=== PATIENT | male | born 2000 | race Hispanic/Latino ===

== ENCOUNTER 2022-03-29 17:12 | Emergency (ER) | payer OTHER, SELFPAY ==
[2022-03-29 17:19] VITALS: TEMP 37
--- NOTE | 2022-03-29 17:21 | DI.RAD.S_ITS ---
PROCEDURE: XR KNEE RT 3V INDICATIONS: pain without injury TECHNIQUE: 3 views of the knee were acquired. COMPARISON: None. FINDINGS: Bones: No fractures or dislocations. No suspicious bony lesions. The femorotibial joint spaces are relatively well preserved. There is [id number] lateral patellofemoral joint space narrowing seen. Soft tissues: No significant joint effusion. No suspicious soft tissue calcifications. IMPRESSION: Focal lateral patellofemoral joint space narrowing seen. If it would be helpful for clinical management decision making, please consider a dedicated, scheduled knee MRI for further evaluation (assuming that there is no contraindication). Dictated by: Cj Heath M.D. on 03/29/2022 at 16:48 Approved by: Cj Heath M.D. on 03/29/2022 at 16:48
[2022-03-29 17:22] VITALS: BP 124/74; PULSE 67; RESP 16; O2SAT 100
[2022-03-29 18:32] VITALS: BP 120/70; PULSE 65; RESP 18; TEMP 36.9; O2SAT 98
--- NOTE | 2022-03-29 19:41 | ED_ITS ---
HPI - Extremity Injury (Lower) <Seferino Catherine PA-C - Last Filed: 03/29/22 19:47> General Chief Complaint: Extremity Injury, Lower Stated Complaint: RO DVT Time Seen by Provider: 03/29/22 17:50 Source: patient Mode of arrival: Ambulatory History of Present Illness HPI Narrative: 21-year-old male with no reported past medical history presents to the ED with 2-1/2 weeks of right-sided knee pain. Patient states that he injured his right knee when working out on the treadmill, following which he experiences pain at the front of the knee when flexing and extending the knee, bearing weight. Patient denies numbness, tingling, weakness. Patient was [place] [employer] who sent him to the ED to rule out a DVT. Review of Systems <Seferino Catherine PA-C - Last Filed: 03/29/22 19:47> Review of Systems ROS Unobtainable: All systems reviewed & are unremarkable except as noted in HPI and below Constitutional Constitutional: Denies chills, Denies fatigue, Denies fever(s), Denies frequent falls, Denies lethargy and Denies weakness Eyes Eyes: Denies change in vision, Denies eye discharge, Denies irritation and Denies loss of vision ENT Ears, Nose, Mouth, and Throat: Denies change in voice, Denies dizziness, Denies neck pain, Denies sore throat and Denies throat swelling Cardiovascular Cardiovascular: Denies chest pain, Denies irregular heart rhythm, Denies lightheadedness, Denies palpitations, Denies dyspnea, Denies dyspnea on exertion and Denies orthopnea Respiratory Respiratory: Denies cough, Denies dyspnea, Denies dyspnea on exertion and Denies wheezing Gastrointestinal Gastrointestinal: Denies abdominal pain, Denies change in bowel habits, Denies diarrhea, Denies nausea and Denies vomiting Genitourinary Genitourinary: Denies hematuria, Denies flank pain, Denies urinary incontinence and Denies urinary urgency Musculoskeletal Musculoskeletal: Denies back pain, Denies muscle weakness, Denies neck pain, Denies numbness and Denies tingling Comments: Right knee pain Integumentary/Breasts Skin/Breast: Denies pruritus, Denies erythema, Denies rash and Denies wounds Neurologic Neurologic: Denies behavioral changes, Denies confusion, Denies dizziness, Denies frequent falls, Denies loss of vision, Denies numbness, Denies tingling and Denies weakness Psychiatric Psychiatric: Denies anxiety, Denies behavioral changes, Denies confusion, Denies depression, Denies homicidal ideation and Denies suicidal ideation Endocrine Endocrine: Denies fatigue, Denies flushing and Denies palpitations Hematologic/Lymphatic Hematologic/Lymphatic: Denies easy bruising Allergic/Immunologic Allergic/Immunologic: Denies urticaria, Denies throat swelling and Denies wheezing Exam <Seferino Catherine PA-C - Last Filed: 03/29/22 19:47> Narrative Exam Narrative: Const General:?cooperative, healthy appearing and comfortable [facility] Head:?normal to inspection Ears:?hearing grossly normal bilaterally Nose:?external nose normal Face and sinus:?normal facial exam and sinuses nontender Mouth:?oral mucosae normal Throat:?posterior oropharynx normal Eyes General:?appearance normal, both eyes and all related structures Neck Neck:?normal visual inspection and no lymphadenopathy noted Resp Effort & Inspection:?normal respiratory effort Auscultation:?clear to auscultation bilaterally Cardio Rate:?regular rate Rhythm:?regular rhythm Musculoskeletal The front of right knee mildly tender to palpation. Patient has full range of motion. Patient is able to bear weight and walk. Patient is neurovascularly intact. Neuro General:?patient alert, patient awake and patient oriented x3 Initial Vital Signs Initial Vital Signs: Vital Signs Temperature 98.6 F 03/29/22 17:19 <Tori Casiano DO - Last Filed: 03/30/22 03:23> Initial Vital Signs Initial Vital Signs: Vital Signs Temperature 98.6 F 03/29/22 17:19 Course <HAKEEM Rivas Last Filed: 03/29/22 19:47> Orders Ordered: ED Orders 03/29/22 17:21 XR knee RT 3V Stat Vital Signs Vital signs: Vital Signs - 8 hr 03/29/22 17:19 03/29/22 17:22 03/29/22 18:32 Temperature 98.6 F 98.4 F Pulse Rate 67 65 Respiratory Rate 16 18 Blood Pressure 124/74 120/70 Pulse Oximetry 100 98 <Tori Casiano DO - Last Filed: 03/30/22 03:23> Orders Ordered: ED Orders 03/29/22 17:21 XR knee RT 3V Stat Vital Signs Vital signs: Vital Signs - 8 hr 03/29/22 17:19 03/29/22 17:22 03/29/22 18:32 Temperature 98.6 F 98.4 F Pulse Rate 67 65 Respiratory Rate 16 18 Blood Pressure 124/74 120/70 Pulse Oximetry 100 98 MDM - Extremity Injury (Lower) <Seferino Catherine PA-C - Last Filed: 03/29/22 19:47> Imaging Data Extremity x-ray #1: Radiologist's Impression: PROCEDURE:? XR KNEE RT 3V ? INDICATIONS:? pain without injury ? TECHNIQUE:? 3 views of the knee were acquired.? ? COMPARISON:? None. ? FINDINGS:? ? Bones:? No fractures or dislocations.? No suspicious bony lesions.? The femorotibial joint spaces are relatively well preserved. ? There is [id number] lateral patellofemoral joint space narrowing seen. ? Soft tissues:? No significant joint effusion.? No suspicious soft tissue calcifications.? IMPRESSION:? Focal lateral patellofemoral joint space narrowing seen. ? If it would be helpful for clinical management decision making, please consider a dedicated, scheduled knee MRI for further evaluation (assuming that there is no contraindication).? ? ? Dictated by: Cj Heath M.D. on 03/29/2022 at 16:48 ? ? Approved by: Cj Heath M.D. on 03/29/2022 at 16:48 ? [facility] Narrative Medical decision making narrative: 21-year-old male with no reported past medical history presents to the ED with 2-1/2 weeks of right-sided knee pain. Concern for fracture/dislocation versus musculoskeletal sprain/strain. DVT is unlikely given history and physical exam. X-ray was negative for acute findings. Patient discharged home with ED return precautions, recommend follow-up with PCP for PT referral. Patient verbalized understanding. Discharge Plan Departure Patient Disposition: Home Clinical Impression: Acute knee pain Instructions: DI for Knee Sprain Activity Restrictions/Additional Instructions: You were evaluated in the ED today for right-sided knee pain. Your x-rays were negative for fracture/dislocation. Your symptoms are likely due to a musculoskeletal sprain/strain due to the injury on the treadmill. You may continue to elevated, ice, use ibuprofen. Please follow-up with your PCP to get a PT referral. Return to the ED if your symptoms worsen, you experience numbne ss, tingling, weakness. Referrals: Provider,Ruiz CAMARILLO [Primary Care Provider] - Visit Report Forms: Patient Portal/API <Tori Casiano DO - Last Filed: 03/30/22 03:23> Cosign ED Attending Olga Attestation: I was immediately available in the department for consultation. Documentation has been reviewed. I agree with assessment and plan.
== END 2022-03-29 18:33 | disposition home or self-care (01) ==
PROVIDERS: Emergency Provider Student in an Organized Health Care Education/Training Program
DX: M25.561 Pain in right knee (principal); X50.1XXA Overexertion from prolonged static or awkward postures, initial encounter
CPT/HCPCS: 73562; 99281; 99283